=== PATIENT | male | born 1940 | race American Indian/Alaskan Native ===

== ENCOUNTER → 2017-12-22 | Outpatient (CLI) | payer MEDICARE, BC ==
[~2017-12-22] MED LIST: ACET-1966 PO; ASPI-1167 PO; AVANDAMET; CRESTOR; GLIM1TAB25 PO; LEVO-3 PO; LEVO75TA68 PO; METF-420 PO; METF10002 PO; METXR500 PO; MICARDIS; MYCO500T28 PO; PER PO; PRANDIN; ROSU20TA23 PO; SILD100T59 PO; SILD20TA PO; TADA20TA33 PO; TEL40 PO; VALS160T22 PO; VALS160T7 PO; [UNRECOGNIZED DRUG - CODE] PO
[2017-12-22 13:38] LABS: PLATELET COUNT, AUTOMATED 178 K/uL (150-450)
== END ==
LOC: LAB 13:20
PROVIDERS: ATTEND Ophthalmology Uveitis and Ocular Inflammatory Disease
DX: H30.93 Unspecified chorioretinal inflammation, bilateral (principal)
CPT/HCPCS: 36415; 84450; 84460; 85025

== ENCOUNTER → 2017-12-23 | Outpatient (CLI) | payer MEDICARE, BC ==
[2017-12-23 10:06] LABS: PLATELET COUNT, AUTOMATED 154 K/uL (150-450)
[2017-12-23 10:30] LABS: LDL CHOLESTEROL 59 mg/dl
== END ==
LOC: LAB 09:39
PROVIDERS: ATTEND Internal Medicine
DX: Z12.5 Encounter for screening for malignant neoplasm of prostate (principal); E11.9 Type 2 diabetes mellitus without complications; E78.2 Mixed hyperlipidemia; I10 Essential (primary) hypertension; E03.9 Hypothyroidism, unspecified
CPT/HCPCS: 36415; 81001; 83036; 84443; 84550; 85025; G0103; 82040; 82247; 82310; 82374; 82435; 82465; 82565; 82947; 83718; 84075; 84132; 84153; 84155; 84295; 84450; 84460; 84478; 84520

== ENCOUNTER → 2017-12-30 | Outpatient (CLI) | payer MEDICARE, BC ==
[2017-12-30 17:15] LABS: PLATELET COUNT, AUTOMATED 206 K/uL (150-450)
== END ==
LOC: LAB 16:33
PROVIDERS: ATTEND Internal Medicine
DX: D64.9 Anemia, unspecified (principal); I10 Essential (primary) hypertension; E11.9 Type 2 diabetes mellitus without complications; E03.9 Hypothyroidism, unspecified; E78.5 Hyperlipidemia, unspecified; R31.9 Hematuria, unspecified
CPT/HCPCS: 36415; 81001; 82607; 82728; 82746; 83540; 83550; 85025

== ENCOUNTER → 2018-02-09 | Outpatient (CLI) | payer MEDICARE, BC ==
[~2018-02-09] MED LIST changes: +CYAN100088 PO; +GOLYTE PO; +MULT1TAB54 PO
--- NOTE | 2018-02-09 15:19 | RADIOLOGY IMAGING REPORT ---
FACILITY: PATIENT NAME: Didier Aguilera : 1940 MR: [id number] V: [id number] EXAM DATE: ORDERING PHYSICIAN: JORGE MIRANDA TECHNOLOGIST: Location: [facility] Patient: Didier Aguilera : 1940 Visit/Account:[id number] Date of Sevice: 02/09/2018 KIDNEYS EXAMINATION: Renal ultrasound. History: Microhematuria COMPARISON STUDIES: FINDINGS: Kidneys: Right kidney- 11.1 x 4.6 x 5.1 cm Left kidney- 1.5 x 7.8 x 5.4 cm Uniform and symmetric blood flow in each kidney by Doppler ultrasound. Hydronephrosis: none There is a 1.6 cm cyst lower pole the right kidney and a 5 cm cyst upper pole the left kidney in jessica tion to a 1.5 cm cyst Bladder: Prevoid volume 322 mL. Postvoid residual 37 mL. Bilateral ureteral jets were present. Abdominal aorta and IVC: Not imaged IMPRESSION: Bilateral renal cysts Post void bladder residual 37 mL Report Dictated By: Cristal Manriquez MD at 02/09/2018 3:13 PM Report E-Signed By: Cristal Manriquez MD at 02/09/2018 3:15 PM WSN:[email or web address]
== END ==
LOC: US 02:07
PROVIDERS: ATTEND Urology
DX: N28.1 Cyst of kidney, acquired (principal); R33.9 Retention of urine, unspecified
CPT/HCPCS: 76705

== ENCOUNTER → 2018-02-10 | Outpatient (REF) | payer MEDICARE, BC | LOC: ZZSENDIN 16:55 | PROVIDERS: ATTEND Urology | DX: R31.1 Benign essential microscopic hematuria (principal) | CPT/HCPCS: 88108 ==

== ENCOUNTER 2018-02-18 00:30 | Day surgery (SDC) | payer MEDICARE, BC ==
[~2018-02-18] VITALS: Ht 170.2 cm; Wt 82.6 kg
[2018-02-18 06:50] VITALS: BP 146/88
[2018-02-18] MEDS ORDERED: PROPOFOL EMUL(*) 10MG/ML 20 ML 40 ML ONE (06:52)
[2018-02-18] MEDS ORDERED: NORMOSOL R SOLN(*) 1000 ML BAG 1,000 ML IV PRN (07:10)
[2018-02-18] MEDS ORDERED: LIDOCAINE/SOD BICARB 8.4% SYR ID ONE (07:10)
[2018-02-18] MEDS ORDERED: MIDAZOLAM 2 MG/2 ML VIAL IVP PRN (07:10)
[2018-02-18] MEDS ORDERED: PROPOFOL EMUL(*) 10MG/ML 20 ML 20 ML ONE ×2 (08:29→08:53)
[2018-02-18 09:04] VITALS: BP 89/47
--- NOTE | 2018-02-18 09:06 | Short(Outpt) Discharge Summary ---
Discharge Summary Reason for Hosp/Final Diag: (1) Colon cancer screening Status: Chronic Hospital Course & Plan: Colonoscopy with polypectomy x1 completed without problems. Departure Discharge to: Home, Self Care Discharge Instructions Home Meds Active Scripts Metformin Hcl (METFORMIN HCL ER) 500 Mg Tabcr, 1 TAB PO BID, #180 TAB 3 Refills Prov:GERA MANN MD 01/05/18 Peg/Electrolytes (GOLYTELY SOLUTION) 4,000 Ml Soln, 1 GAL PO ONCE, #1 GAL 0 Refills Prov:GERA MANN MD 01/05/18 Cyanocobalamin (Vitamin B-12) (B-12) 1,000 Mcg Tablet.er, 1000 MCG PO QDAY, #90 TAB Prov:JULIO HILL MD 01/01/18 Levothyroxine Sodium (LEVOTHYROXINE SODIUM) 100 Mcg Tablet, 1 TAB PO QDAY, #90 TAB 2 Refills Prov:JULOI HILL MD 12/16/17 Sildenafil Citrate (SILDENAFIL) 20 Mg Tablet, 2-3 TAB PO QDAY Y for E.D., #30 TAB 3 Refills Prov:JULIO HILL MD 08/19/17 Valsartan (Valsartan) 160 Mg Tablet, 1 TAB PO BID, #180 TAB 4 Refills Prov:JULIO HILL MD 08/18/17 Reported Medications Mycophenolate Mofetil (MYCOPHENOLATE MOFETIL) 500 Mg Tablet, 2 TAB PO BID 05/19/17 Acetaminophen (TYLENOL) 325 Mg Tablet, 1-2 TAB PO PRN, TAB 12/31/16 Rosuvastatin Calcium (CRESTOR) 20 Mg Tablet, 1 TAB PO QDAY 12/31/16 Diet: Regular Activity: As Tolerated Special Instructions: Your colonoscopy was completed without any problems and your prep was excellent (Good Job!!). I removed 1 polyp from your colon and it was sent to pathology. My office will call you in the next week and let you know what the polyp is and when your next colonoscopy should be. GERA MANN MD February 18, 2018 09:06
[2018-02-18 09:22] VITALS: BP 103/65
[2018-02-18 09:36] VITALS: BP 113/98
[2018-02-18 09:39] VITALS: BP 140/73
== END 2018-02-18 09:50 | disposition home or self-care (01) ==
LOC: OR 00:30
PROVIDERS: ATTEND Surgery
DX: Z12.11 Encounter for screening for malignant neoplasm of colon (principal); K63.5 Polyp of colon; E11.9 Type 2 diabetes mellitus without complications
CPT/HCPCS: 00811; 36416; 45385; 82948; 88305; J2704

== ENCOUNTER → 2018-02-20 | Outpatient (CLI) | payer MEDICARE, BC ==
[~2018-02-20] MED LIST changes: -METF-420 PO; +METF-421 PO
[2018-02-20 09:31] LABS: PLATELET COUNT, AUTOMATED 188 K/uL (150-450)
== END ==
LOC: LAB 09:04
PROVIDERS: ATTEND Ophthalmology Uveitis and Ocular Inflammatory Disease
DX: H30.93 Unspecified chorioretinal inflammation, bilateral (principal)
CPT/HCPCS: 36415; 84450; 84460; 85025

== ENCOUNTER → 2018-04-20 | Outpatient (CLI) | payer MEDICARE, BC ==
[2018-04-20 14:11] LABS: PLATELET COUNT, AUTOMATED 180 K/uL (150-450)
== END ==
LOC: LAB 13:31
PROVIDERS: ATTEND Ophthalmology Uveitis and Ocular Inflammatory Disease
DX: H30.93 Unspecified chorioretinal inflammation, bilateral (principal)
CPT/HCPCS: 36415; 84450; 84460; 85025

== ENCOUNTER → 2018-08-26 | Outpatient (CLI) | payer MEDICARE, BC ==
[~2018-08-26] MED LIST changes: +LOSA100T69 PO; -METF-421 PO; +METF-452 PO; -VALS160T7 PO; +VALS160T8 PO
[2018-08-26 18:15] LABS: LDL CHOLESTEROL 57 mg/dl
== END ==
LOC: LAB 15:59
PROVIDERS: ATTEND Internal Medicine
DX: E03.9 Hypothyroidism, unspecified (principal); E78.5 Hyperlipidemia, unspecified; E11.9 Type 2 diabetes mellitus without complications; D64.9 Anemia, unspecified; I10 Essential (primary) hypertension
CPT/HCPCS: 36415; 82040; 82247; 82310; 82374; 82435; 82465; 82565; 82607; 82728; 82746; 82947; 83036; 83540; 83550; 83718; 84075; 84132; 84155; 84295; 84443; 84450; 84460; 84478; 84520

== ENCOUNTER → 2018-08-26 | Outpatient (CLI) | payer MEDICARE, BC ==
[2018-08-26 16:00] LABS: PLATELET COUNT, AUTOMATED 185 K/uL (150-450)
== END ==
LOC: LAB 15:34
PROVIDERS: ATTEND Ophthalmology Uveitis and Ocular Inflammatory Disease
DX: H30.023 Focal chorioretinal inflammation of posterior pole, bilateral (principal)
CPT/HCPCS: 85025

== ENCOUNTER → 2018-09-09 | Outpatient (CLI) | payer MEDICARE, BC ==
[~2018-09-09] MED LIST changes: +CYAN25005 SL
--- NOTE | 2018-09-09 15:43 | RADIOLOGY IMAGING REPORT ---
FACILITY: [facility] PATIENT NAME: Didier Aguilera : 1940 MR: [id number] V: [id number] EXAM DATE: ORDERING PHYSICIAN: JULIO HILL TECHNOLOGIST: Location: [facility] [place] Patient: Didier Aguilera : 1940 Visit/Account:[id number] Date of Sevice: 09/09/2018 CAROTID HISTORY: Aortic stenosis, carotid bruit COMPARISON: None. FINDINGS: Grayscale, duplex and color Doppler interrogation of the extracranial carotid and vertebral arteries was performed bilateral. On the right, peak systolic velocities within the common and internal carotid arteries are 84 and 111 cm/sec respectively. Smaller plaques identified in the proximal right internal and external carotid arteries. There is mild amount of soft plaque at the right carotid bulb. Antegrade flow within the common, internal and external carotid arteries as well as vertebral artery. ICA/CCA ratio 1.3. On the left, peak systolic velocities within the common and internal carotid arteries are 69 and 117 cm/sec respectively. There is moderate intimal thickening in the left common carotid artery. There is a moderate amount of hard and soft plaque at the left carotid bulb extending into the proximal lef t internal carotid artery. Antegrade flow within the common, internal and external carotid arteries as well as vertebral artery. ICA/CCA ratio 1.5. IMPRESSION: Small plaques are identified in the proximal right internal and external carotid arteries and a small amount soft plaque in the right carotid bulb although no hemodynamically significant lesions identif ied There is moderate intimal thickening in the left common carotid artery and a moderate amount of hard and soft plaque left carotid bulb extending into the proximal left internal carotid artery although n o hemodynamically significant lesions identified by velocity criteria. Velocity criteria are extrapolated from diameter data as defined by the Society of Radiologists in [place] [employer]ound Consensus Conference Radiology 2003; 229;340-346 Report Dictated By: Cristal Manriquez MD at 09/09/2018 3:36 PM Report E-Signed By: Cristal Manriquez MD at 09/09/2018 3:39 PM WSN:[email or web address]
== END ==
LOC: RAD 09-08 13:52
PROVIDERS: ATTEND Internal Medicine
DX: I65.23 Occlusion and stenosis of bilateral carotid arteries (principal); I51.7 Cardiomegaly; I35.0 Nonrheumatic aortic (valve) stenosis
CPT/HCPCS: 93306; 93880

== ENCOUNTER → 2018-12-21 | Outpatient (CLI) | payer MEDICARE, BC ==
[~2018-12-21] MED LIST changes: -LOSA100T69 PO; +LOSA100T75 PO; +ROSU20TA24 PO
[2018-12-21 11:25] LABS: PLATELET COUNT, AUTOMATED 185 K/uL (150-450)
== END ==
LOC: LAB 11:04
PROVIDERS: ATTEND Internal Medicine
DX: E78.5 Hyperlipidemia, unspecified (principal); E11.9 Type 2 diabetes mellitus without complications; E03.9 Hypothyroidism, unspecified; I35.0 Nonrheumatic aortic (valve) stenosis
CPT/HCPCS: 36415; 82040; 82247; 82310; 82374; 82435; 82565; 82607; 82728; 82746; 82947; 83540; 83550; 84075; 84132; 84155; 84295; 84450; 84460; 84520; 85025

== ENCOUNTER → 2018-12-21 | Outpatient (CLI) | payer MEDICARE, BC | LOC: LAB 11:06 | PROVIDERS: ATTEND Ophthalmology Uveitis and Ocular Inflammatory Disease | DX: H30.023 Focal chorioretinal inflammation of posterior pole, bilateral (principal) ==

== ENCOUNTER → 2019-02-08 | Outpatient (CLI) | payer MEDICARE, BC ==
[2019-02-08 16:15] LABS: PLATELET COUNT, AUTOMATED 190 K/uL (150-450)
== END ==
LOC: LAB 15:16
PROVIDERS: ATTEND Ophthalmology Uveitis and Ocular Inflammatory Disease
DX: H30.023 Focal chorioretinal inflammation of posterior pole, bilateral (principal)
CPT/HCPCS: 84450; 84460; 85025

== ENCOUNTER → 2019-02-08 | Outpatient (CLI) | payer MEDICARE, BC | LOC: LAB 15:13 | PROVIDERS: ATTEND Urology | DX: Z12.5 Encounter for screening for malignant neoplasm of prostate (principal) | CPT/HCPCS: 36415; G0103; 84153 ==

== ENCOUNTER → 2019-03-29 | Outpatient (CLI) | payer MEDICARE, BC ==
[2019-03-29 11:47] LABS: PLATELET COUNT, AUTOMATED 207 K/uL (150-450)
[2019-03-29 12:14] LABS: LDL CHOLESTEROL 51 mg/dl
== END ==
LOC: LAB 11:19
PROVIDERS: ATTEND Internal Medicine
DX: D64.9 Anemia, unspecified (principal); I35.0 Nonrheumatic aortic (valve) stenosis; E11.9 Type 2 diabetes mellitus without complications; E78.5 Hyperlipidemia, unspecified; R63.4 Abnormal weight loss
CPT/HCPCS: 36415; 81001; 82728; 83036; 83540; 83550; 84443; 85025; G0103; 82040; 82247; 82310; 82374; 82435; 82465; 82565; 82947; 83718; 84075; 84132; 84153; 84155; 84295; 84450; 84460; 84478; 84520

== ENCOUNTER → 2019-03-29 | Outpatient (CLI) | payer MEDICARE, BC | LOC: LAB 11:04 | PROVIDERS: ATTEND Ophthalmology Uveitis and Ocular Inflammatory Disease | DX: Z02.9 Encounter for administrative examinations, unspecified (principal) ==